=== PATIENT | male | born 1970 | race Caucasian/White ===

== ENCOUNTER 2024-07-11 13:52 | Emergency (ER) | payer OTHER, SELFPAY ==
[2024-07-11 14:00] VITALS: BP 132/103
--- NOTE | 2024-07-11 14:54 | ED.GENMED ---
History of Present Illness
General
Chief Complaint: Musculo-Skeletal Complaint
Source: patient
Exam Limitations: none
Time Seen by Provider: 07/11/24 14:26
Nursing documentation reviewed up to this point in time: agreed with
History of Present Illness
History of Present Illness:
Patient presents to ED secondary to persistent left big toe and left lower leg pain, after he tripped and fell on top of fallen tree. Patient has multiple abrasions noted over both legs. Denies any other injuries. Patient states that his tetanus
vaccination is up-to-date.
Past History
Past History
ED Past Medical History: None
ED Past Surgical History: Other (right shoulder sx)
Social History
Tobacco: Non-smoker
Personal:
Living: with family
Employment: Employed
Review of Systems
Review of Systems
Allergies reviewed?: Yes
All Other Systems: ROS reviewed and negative except as documented in HPI and ROS
Constitutional: Reports no symptoms
Musculoskeletal: Reports other (toe/leg pain)
Skin: Reports other (abrasion)
Neurological: Reports no symptoms
Phy Exam
Physical Exam
Physical Exam:
Physical Exam
General: mild painful distress, not acutely ill. afebrile
Head: nc/at. eomi
Neck: supple. normal range of motion.
Neuro: alert and oriented x 3. no focal neurological deficits
Skin: superficial abrasion noted over posterior aspect of right LE and anterior surface of RLE with tenderness over mid-tibia
Psychiatric: well kept. interactive and cooperative
Extremities: ecchymosis/tenderness noted over left 1st prox phalanx without deformity
Course
Orders/Labs/Results
Orders:
Orders
07/11/24 14:02
Toes 2 Views, Left CR [CR Toe(s) Min 2 Vw Left] Urgent
Comment:
Reason For Exam: injury
Indicate Which Toe:: Great
07/11/24 14:55
CR Leg Tibia/fibula Left 2 Vw Urgent
Comment:
Reason For Exam: trauma
07/11/24 15:20
Ortho Boot Left- Treatment ONCE
Short or tall?: Short
07/11/24 15:22
Prednisone [Deltasone] 50 mg PO NOW STA
Vital Signs
Initial and Last Documented VS:
Initial Vital Signs
Temp Pulse Resp BP Pulse Ox
97.5 F 89 16 132/103 98
07/11/24 14:00 07/11/24 14:00 07/11/24 14:00 07/11/24 14:00 07/11/24 14:00
Last Documented Vital Signs
Temp Pulse Resp BP Pulse Ox
97.5 F 89 16 132/103 98
07/11/24 14:00 07/11/24 14:00 07/11/24 14:00 07/11/24 14:00 07/11/24 14:00
MDM/Problems Addressed
MDM/Problems Addressed:
History, exam, and x-ray consistent with left first toe comminuted fracture. Luis A tape will be applied and Ortho boot will be provided, along with recommendation to follow-up with his orthopedic surgeon at [facility]. Patient will be given
copy of x-ray at time of discharge, to be reviewed with his orthopedic surgeon.
Prior to discharge, patient is expressing worsening poison imelda noted on his arms, over the past 1 week. As patient has responded to prednisone in the past, patient will be given prescription for short course of prednisone, along with recommendation
to apply calamine lotion and PCP follow-up.
*Critical Care Note
Total Time (30-74mins, 75-104mins- exclusive of procedures): Not Applicable
ED Attending Note
-
Portions of this chart may have been created with voice recognition software.� Occasional wrong word or��sound alike� substitutions may have occurred due to the inherent limitations of voice recognition software.
Discharge Plan
Departure
Patient Disposition: Home (Routine Discharge)
Date of Disposition: 07/11/24
Time of Disposition: 15:21
Patient with high blood pressure during this ER visit?: Yes
Condition: Good
Discharge Problem:
Abrasion, Fracture of toe, Poison imelda
Instructions: Poison Imelda, Walking Boot, Toe Fracture ED, Abrasions - ED discharge instructions
Prescriptions:
New
prednisone 50 mg tablet
50 mg PO DAILY Qty: 2 0RF
No Action
hydrocodone-acetaminophen 5 MG/500 MG tablet
1 tab PO .Q4-6HPRN PRN (Reason: PAIN) Qty: 20 0RF
Referrals:
Tejinder Salinas MD [Family Provider] -
Riccardo Fletcher MD [Active] -
Activity Restrictions/Additional Instructions:
As discussed, please follow-up with your orthopedic surgeon for further evaluation and treatment. Your prescription has been sent electronically to [facility] pharmacy in [place].
Interventions
Interventions:
*Risk Screen - Suicide Last Done: 07/11/24 14:00
*General Assessment Last Done: 07/11/24 15:52
*Neglect/Abuse Screening Last Done: 07/11/24 14:00
*ED- Fall Risk Assessment Last Done: 07/11/24 15:52
*ED COVID-19 Vaccine History Last Done: 07/11/24 15:52
*Nursing Disposition Last Done: 07/11/24 15:55
ED-Musculoskeletal Assessment Last Done: 07/11/24 15:52
Discharge Date and Time
Discharge Date/Time: 07/11/24 15:55
Print Language: HUNGARIAN
[2024-07-11] MEDS: DELTASONE 50 MG PO (15:39)
== END 2024-07-11 15:55 | disposition home or self-care (01) ==
LOC: EMR 13:52
PROVIDERS: EMERGENCY PHYSICIAN Emergency Medicine; FAMILY PHYSICIAN Family Medicine
DX: S92.412A Displaced fracture of proximal phalanx of left great toe, initial encounter for closed fracture (principal); S80.812A Abrasion, left lower leg, initial encounter; S80.811A Abrasion, right lower leg, initial encounter; L23.7 Allergic contact dermatitis due to plants, except food; W01.0XXA Fall on same level from slipping, tripping and stumbling without subsequent striking against object, initial encounter
CPT/HCPCS: 99283; 73590; 73660